=== PATIENT | female | born 1935 | race Caucasian/White ===

== ENCOUNTER → 2017-11-18 | Outpatient (CLI) | payer MEDICARE, MEDICAID ==
[2016-03-12 12:29] VITALS: BMI 20.4
[~2017-11-18] MED LIST: ACET-2007 PO; ACET-2031 PO; ACET500T68 PO; AMLO-96 PO; ASPI-1471 PO; ASPI-764 PO; ATOR20TA22 PO; ATOR20TA65 PO; BACL-1 PO; BISA10SU62 RC; CELE100C79 PO; CHOL100052 PO; CHOL500016 PO; CIPR-214 PO; CITA-155 PO; CYA1000 PO; CYAN100071 SL; DEXT1DRO15 OP; DONE10TA38 PO; DONE5TAB29 PO; FERR240T15 PO; FERR325T5 PO; FLUO40CA67 PO; GABA-549 PO; LEVO25TA61 PO; LID5T TP; LOSA50TA72 PO; MIRT-22 PO; NAPR-1043 PO; OXYB5TAB80 PO; PANT20TA26 PO; RIV10 PO; RIVA20TA PO; ROPI1TAB36 PO; ROPI2TAB27 PO; ROPI4TAB2 PO; SENN-228 PO; SIMV-54 PO; TRAM-420 PO
[2017-11-18 09:12] LABS: PLATELET COUNT, AUTOMATED 233 K/uL (150-450)
== END ==
LOC: ZZSPRING 02:33
PROVIDERS: ATTEND Nurse Practitioner Family
DX: D53.9 Nutritional anemia, unspecified (principal); I10 Essential (primary) hypertension; E78.00 Pure hypercholesterolemia, unspecified; E03.9 Hypothyroidism, unspecified; E61.1 Iron deficiency; F03.90 Unspecified dementia, unspecified severity, without behavioral disturbance, psychotic disturbance, mood disturbance, and anxiety; D51.0 Vitamin B12 deficiency anemia due to intrinsic factor deficiency; E55.9 Vitamin D deficiency, unspecified
CPT/HCPCS: 36415; 82040; 82247; 82306; 82310; 82374; 82435; 82465; 82565; 82607; 82947; 83718; 84075; 84132; 84155; 84295; 84443; 84450; 84460; 84478; 84520; 85025

== ENCOUNTER → 2018-02-17 | Outpatient (CLI) | payer MEDICARE, MEDICAID ==
[2016-03-12 12:29] VITALS: BMI 20.4
== END ==
LOC: ZZSPRING 01:07
PROVIDERS: ATTEND Nurse Practitioner Family
DX: D53.9 Nutritional anemia, unspecified (principal); I10 Essential (primary) hypertension; E78.00 Pure hypercholesterolemia, unspecified; E03.9 Hypothyroidism, unspecified; E06.3 Autoimmune thyroiditis; E61.1 Iron deficiency; D51.0 Vitamin B12 deficiency anemia due to intrinsic factor deficiency
CPT/HCPCS: 36415; 82040; 82247; 82310; 82374; 82435; 82565; 82607; 82947; 84075; 84132; 84155; 84295; 84443; 84450; 84460; 84520

== ENCOUNTER → 2018-04-10 | Outpatient (CLI) | payer MEDICARE, MEDICAID ==
[2016-03-12 12:29] VITALS: BMI 20.4
[2018-04-10 12:16] LABS: PLATELET COUNT, AUTOMATED 227 K/uL (150-450)
== END ==
LOC: LAB 11:58
PROVIDERS: ATTEND Nurse Practitioner Family
DX: R35.0 Frequency of micturition (principal); R50.9 Fever, unspecified; R82.79 Other abnormal findings on microbiological examination of urine
CPT/HCPCS: 36415; 81001; 82040; 82247; 82310; 82374; 82435; 82565; 82947; 84075; 84132; 84155; 84295; 84450; 84460; 84520; 85025; 87088

== ENCOUNTER → 2018-04-15 | Outpatient (CLI) | payer MEDICARE, MEDICAID ==
[2016-03-12 12:29] VITALS: BMI 20.4
== END ==
LOC: LAB 11:39
PROVIDERS: ATTEND Nurse Practitioner Family
DX: D53.9 Nutritional anemia, unspecified (principal)
CPT/HCPCS: 36415; 81001; 82040; 82247; 82310; 82374; 82435; 82565; 82947; 84075; 84132; 84155; 84295; 84443; 84450; 84460; 84520; 85027

== ENCOUNTER → 2018-05-05 | Outpatient (CLI) | payer MEDICARE, MEDICAID ==
[2016-03-12 12:29] VITALS: BMI 20.4
== END ==
LOC: ZZSPRING 00:22
PROVIDERS: ATTEND Nurse Practitioner Family
DX: E87.8 Other disorders of electrolyte and fluid balance, not elsewhere classified (principal)
CPT/HCPCS: 36415; 82040; 82247; 82310; 82374; 82435; 82565; 82947; 84075; 84132; 84155; 84295; 84450; 84460; 84520

== ENCOUNTER → 2018-09-08 | Outpatient (CLI) | payer MEDICARE, MEDICAID ==
[2016-03-12 12:29] VITALS: BMI 20.4
[~2018-09-08] MED LIST changes: +AMLO-111 PO; -AMLO-96 PO; -LOSA50TA72 PO; +LOSA50TA74 PO
--- NOTE | 2018-09-08 15:14 | RADIOLOGY IMAGING REPORT ---
FACILITY: [facility] PATIENT NAME: Samra Way : 1935 MR: [id number] V: [id number] EXAM DATE: ORDERING PHYSICIAN: KEM HERNANDEZ TECHNOLOGIST: Location: [facility] Patient: Samra Way : 1935 Visit/Account:[id number] Date of Sevice: 09/08/2018 Exam type: FEMUR LEFT History: Fell 2 days ago, no bruising left hip and leg pain Comparison: None. Findings: There is a left hip arthroplasty and left knee arthroplasty both of which appear in good anatomic ali gnment. There is no evidence of acute fracture or dislocation incompletely imaged are postsurgical c hanges lower lumbar spine IMPRESSION: 1. Left hip and knee arthroplasties appear in good anatomic alignment No evidence of acute fracture-dislocation involving the left femur Report Dictated By: Joanie Morrow MD at 09/08/2018 3:07 PM Report E-Signed By: Joanie Morrow MD at 09/08/2018 3:08 PM WSN:[email or web address]
--- NOTE | 2018-09-08 15:36 | RADIOLOGY IMAGING REPORT ---
FACILITY: [facility] PATIENT NAME: Samra Way : 1935 MR: [id number] V: [id number] EXAM DATE: ORDERING PHYSICIAN: KEM HERNANDEZ TECHNOLOGIST: [place] [facility] [place] Samra Way : 1935 Visit/Account:[id number] Date of Sevice: 09/08/2018 Exam type: HIP LEFT History: Fell 2 days ago, left hip and leg pain Comparison: Left femur performed today. Findings: Two views the left hip demonstrate left hip arthroplasty in good anatomic alignment. There is no dusty dence of acute fracture or dislocation. Moderate degenerative changes of the right hip joint noted. Sclerotic changes at both SI joints are present, right greater than left. Incompletely imaged are p ostsurgical changes of the lower lumbar spine IMPRESSION: Left hip arthroplasty appears in good anatomic alignment with no evidence of acute fractu re dislocation Report Dictated By: Joanie Morrow MD at 09/08/2018 3:08 PM Report E-Signed By: Joanie Morrow MD at 09/08/2018 3:32 PM WSN:[email or web address]
== END ==
LOC: RAD 11:37
PROVIDERS: ATTEND Nurse Practitioner Family
DX: M25.552 Pain in left hip (principal); M79.652 Pain in left thigh; R29.6 Repeated falls; Z96.642 Presence of left artificial hip joint

== ENCOUNTER → 2019-01-15 | Outpatient (CLI) | payer MEDICARE, MEDICAID ==
[2016-03-12 12:29] VITALS: BMI 20.4
[~2019-01-15] MED LIST changes: -AMLO-111 PO; +AMLO-125 PO; +CALC-58; +CALC-707 PO; +CITA-145 PO; +CYAN100015 PO; +DICL100G39; +DOCU-416 PO; +GUAI118L70; +IBUP-56 PO; +LEVO50TA86 PO; +LOPE-84 PO; -LOSA50TA74 PO; +LOSA50TA80 PO; +MOM PO; +NOR10 PO; +POLY17PO25 PO; +PRAM0.2520 PO; +SENN-174 PO; +[UNRECOGNIZED DRUG - CODE] PO
== END ==
LOC: AUD 14:00
PROVIDERS: ATTEND Otolaryngology
DX: H91.92 Unspecified hearing loss, left ear (principal); H90.41 Sensorineural hearing loss, unilateral, right ear, with unrestricted hearing on the contralateral side
CPT/HCPCS: 92552